=== PATIENT | female | born 1985 | race Caucasian/White ===

== ENCOUNTER 2019-02-02 11:09 | Emergency (ER) | payer SELFPAY ==
[2019-02-02] MEDS ORDERED: traMADol HCl 50 MG TAB ONE (11:49)
[2019-02-02] MEDS ORDERED: Ketorolac Tromethamine 60 MG/2 ML VIAL ONE (11:49)
== END 2019-02-02 12:23 | disposition home or self-care (01) ==
LOC: ERS 11:09
DX: K08.89 Other specified disorders of teeth and supporting structures (principal); J45.909 Unspecified asthma, uncomplicated; F17.200 Nicotine dependence, unspecified, uncomplicated
CPT/HCPCS: 96372; 99282; J1885